=== PATIENT | male | born 1955 | race African-American/Black ===

== ENCOUNTER 2022-12-06 05:51 | Observation (INO) ==
--- NOTE | 2022-11-21 13:58 | PAT Medication Instructions ---
Medication Instructions Date of Service November 21, 2022 Home Medications Medication Instructions Recorded oxycodone-acetaminophen 10 mg-325 1 tab PO BID PRN pain #60 tabs 11/01/ mg tablet multivitamin 1 tab PO DAILY oxycodone-acetaminophen 10 mg-325 mg tablet 1 tab PO BID PRN DO NOT take the morning of surgery multivitamin 1 tab PO DAILY Take morning of surgery With a small sip of water, OTHERWISE NOTHING TO EAT OR DRINK AFTER MIDNIGHT: oxycodone-acetaminophen 10 mg-325 mg tablet 1 tab PO BID PRN(if needed) Take evening before surgery oxycodone-acetaminophen 10 mg-325 mg tablet 1 tab PO BID PRN(if needed) Other Notes If you have any questions please call us at [phone] or [phone] or [phone] or [phone]
--- NOTE | 2022-11-24 08:21 | Anesthesiology Consultation ---
Date of Service November 24, 2022 Assessment & Plan (1) Encounter for pre-operative examination: - Infectious disease screening: Per assessment on 11/24/22: No known infectious disease contacts or current infectious disease symptoms. No noted Covid positive test result in past 90 days. 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 Has had no issues since. Good functional status. Reviewed with Dr. Helm- recommends preop cardiology evaluation or at least preop Echo (if not able to be seen by cardiology preoperatively). [facility] [place] [facility] [place] that they cannot get patient in until after DOS. Per workload response from PCP, Echo order placed. Echo performed 11/25/22 was unremarkable-- showed the interatrial septum is intact with no evidence for ASD. Injection of contrast documented no interatrial shunt. Chart Review Chart Review: Acceptable Risk for Surgery and Patient seen in Pre Admission Testing Teaching & Discussion Pre-Anesthesia Teaching/Discussion Notes: Instructed NPO after midnight before surgery,except medications with 15 cc of water. Medication instructions provided according to the PAT guidelines. History Surgery Operation Date: 12/06/22 11:35 Proposed Procedures p C5-C6 Anterior Cervical Discectomy, Spinal Cord Monitoring - John Petersen MD Height/Weight Height: 5 ft 8 in Weight: 86.1 kg Allergies Allergy/AdvReac Type Severity Reaction Status Date / Time No Known Allergies Allergy Verified 11/17/22 13:03 Medications Home Medications Medication Instructions Recorded Confirmed Last Taken multivitamin 1 tab PO DAILY 10/06/22 11/17/22 Unknown oxycodone-acetaminophen 10 mg-325 1 tab PO BID PRN pain #60 tabs 11/01/22 11/17/22 Unknown mg tablet Past Medical History Medical History Arthritis Chronic low back pain with right-sided sciatica Congenital heart disease Stress test at age 48 revealed "hole in heart"- per patient, advised nothing further needed. Echo 10/2022, unremarkable with interatrial septum intact with no evidence for ASD. Injection of contrast documented no interatrial shunt. Left cervical radiculopathy Exercise / Class Metabolic Activity II 4-5 Yardwork/Stairs/Walk up hill Past Family History Family History Other No family history of adverse response to anesthesia Past Surgical History Surgical History History of anesthesia reaction slow to wake up and difficulty voiding/constipation History of colonoscopy History of left knee replacement History of tooth extraction [place] teeth removed Past Anesthesia History No Family Hx of Anesthesia Complications and Other (slow to wake up and difficulty voiding/constipation) History of PONV No Hx of PONV Social History Smoking Status: Former smoker Do You Dip or Chew Tobacco: No Smoking End Date: Quit 15-20 years ago Hx Alcohol Use: Yes Alcohol type: hard liquor alcohol intake frequency: a few times a week Hx Substance Use: Yes substance use type: marijuana Substance Use Type Other:: advised 3 day or longer hold Last Used Substance: Days (ago) Last Used Substance Other:: 3 days ago/gave instructions to avoid Review of Systems Patient denies chest pain, shortness of breath, dyspnea on exertion, fever, chills, cough, wheezing, palpitations. Physical Exam Vital Signs VITALS BP 135/84 P 61 TEMP 98.0 SP02 98%RA RESP 16 PHYSICAL Mildly decreased cervical extension range of motion. Full TMJ range of motion. TMD 4 finger breaths Mallampati Score 2 Dentition: full upper/lower dentures Lungs: clear throughout to auscultation Cardiac: regular rate and rhythm, no murmurs noted Spine: normal Carotid arteries: negative bruit Extremities: no LE edema Trimmed montoya Lab Results Anesthesia Preop Results Results Anesthesia Widget: WBC 4.90 K/ul (4.8-10.8) 11/24/22 Hgb 13.8 g/dl (14.0-18.0) L 11/24/22 Hct 40.7 % (42.0-52.0) L 11/24/22 Plt 225 K/uL (130-400) 11/24/22 PT 10.7 Seconds (9.0-12.0) 11/24/22 PTT 25.6 Seconds (21.0-31.0) 11/24/22 INR 1.0 (0.9-1.1) 11/24/22 HA1c 4.3 % (4.5-5.6) L 11/24/22 Urine Color Yellow 11/24/22 Urine Appearance Clear (Clear) 11/24/22 Urine pH 6.0 (4.5-7.5) 11/24/22 Urine Specific Boyce 1.018 (1.000-1.030) 11/24/22 Urine Protein Negative (Negative) 11/24/22 Urine Glucose (UA) Negative (Negative) 11/24/22 Urine Ketones Negative (Negative) 11/24/22 Urine Blood Negative (Negative) 11/24/22 Urine Nitrite Negative (Negative) 11/24/22 Urine Bilirubin Negative (Negative) 11/24/22 Urine Urobilinogen Negative (Negative) 11/24/22 Urine Leukocyte Esterase Negative (Negative) 11/24/22 Blood Type O Positive 11/24/22 Antibody Screen NEGATIVE 11/24/22 Testing Laboratory Results T3 (11/24/22): 121 (WNL) Electrocardiogram Date: 11/24/22 SB with first degree AVB at 55bpm. "Otherwise normal ECG" Chest X-Ray Date: 11/24/22 Findings: + NAD Echocardiogram Date: 11/25/22 EF 55-60%. LV wall motion is normal. Moderate cLVH. Grade I DD. Mild TR. The interatrial septum is intact with no evidence for ASD. Injection of contrast documented no interatrial shunt.
[2022-12-06] MEDS ORDERED: ceFAZolin 2000MG 2,000 MG/15 ML SYR IV SCH (06:00)
[2022-12-06] MEDS ORDERED: LR 15ML/HR IV SCH (06:00)
[2022-12-06] MEDS ORDERED: LR 60ML/HR IV SCH (06:00)
[2022-12-06] MEDS ORDERED: MIDAZOLAM HCL 1 MG/ML 2ML VIAL ONE (06:35)
[2022-12-06] MEDS ORDERED: fentaNYL citrate PF 100 MCG/2 ML VIAL ONE ×2 (06:35→08:20)
[2022-12-06] MEDS ORDERED: ROCURONIUM BROMIDE 10 MG/ML 5 ML VIAL IV ONE (06:35)
[2022-12-06] MEDS ORDERED: PROPOFOL IV EMULSION 10 MG/ML 20 ML VIAL IV ONE (06:35)
[2022-12-06] MEDS ORDERED: LIDOCAINE 2% 2 ML VIAL/AMP(20MG/ML) INFIL ONE (06:35)
[2022-12-06] MEDS ORDERED: DEXAMETHASONE SOD INJ 4 MG/ML VIAL ONE (06:35)
[2022-12-06] MEDS ORDERED: ONDANSETRON INJ 2 MG/ML 2 ML VIAL ONE (06:35)
[2022-12-06] MEDS ORDERED: SUGAMMADEX SODIUM 200 MG/2 ML VIAL IV ONE (06:36)
[2022-12-06] MEDS ORDERED: KETAMINE 50 MG/5 ML SYRINGE ONE (06:36)
[2022-12-06] MEDS ORDERED: PROPOFOL IV EMULSION 10 MG/ML 100 ML VIAL IV ONE (06:50)
[2022-12-06] MEDS ORDERED: HYDROmorphone INJ 2 MG/ML SYR/VIAL IV PRN (06:56)
[2022-12-06] MEDS ORDERED: ATROPINE SULFATE 0.1 MG/ML 10ML SYR IV PRN (06:56)
[2022-12-06] MEDS ORDERED: ePHEDrine sulfate 50 MG/ML AMP IV PRN (06:56)
[2022-12-06] MEDS ORDERED: ONDANSETRON INJ 2 MG/ML 2 ML VIAL IV PRN ×2 (06:56→11:58)
--- NOTE | 2022-12-06 06:59 | History & Physical Bridge Note ---
Date of Service December 06, 2022 History & Physical Bridge Note I have examined the patient, reviewed the History & Physical and in the interval since the performance of the History & Physical I have noted the following changes of clinical significance: no changes noted
[2022-12-06] MEDS ORDERED: GELATIN SPONGE 12-7MM ONE (07:04)
[2022-12-06] MEDS ORDERED: THROMBIN 5000 UNITS KIT ONE (07:04)
[2022-12-06] MEDS ORDERED: VANCOMYCIN HCL 1000MG/20ML VIAL ONE (07:04)
[2022-12-06] MEDS ORDERED: ceFAZolin 330 MG/ML 1 GM VIAL ONE (08:26)
[2022-12-06] MEDS ORDERED: FLOSEAL HEMOSTATIC MATRIX 10ML TOP ONE (11:40)
--- NOTE | 2022-12-06 11:56 | Post Operative Brief Note ---
PG Immediate Post Op with CF Date of Surgery December 06, 2022 Pre & Post Diagnosis Operation Date: 12/06/22 07:15 Pre-Op Diagnosis: 1. Degenerative Cervical Spinal Stenosis, 2. Left Cervical Radiculopathy Post-Op Diagnosis: 1. Degenerative Cervical Spinal Stenosis, 2. Left Cervical Radiculopathy I identified the patient and participated in the time-out.: Yes Procedure Operation Date: 12/06/22 07:15 Actual Procedures p C5-C6, C6-C7 Anterior Cervical Discectomy, Artifical Disc Replacement, Spinal Cord Monitoring(Not Applicable) - John Petersen MD Surgeon John Petersen MD Principal Embedded Software Engineer none Estimated Blood Loss 50 Findings Consistent with Post-Op Diagnosis Specimens Specimen Description: No specimen per surgeon Drains Burden Catheter
[2022-12-06] MEDS ORDERED: ACETAMINOPHEN 1,000 MG/100 ML VIAL IV PRN (11:58)
[2022-12-06] MEDS ORDERED: MAGNESIUM HYDROXIDE SUSP 30 ML UDC PO PRN (11:58)
[2022-12-06] MEDS ORDERED: FAMOTIDINE 20 MG TAB PO PRN (11:58)
[2022-12-06] MEDS ORDERED: HYDROmorphone INJ 0.5 MG/0.5 ML SYR IV PRN (11:58)
[2022-12-06] MEDS ORDERED: diphenhydrAMINE Capsule 25 MG CAP PO PRN (11:58)
[2022-12-06] MEDS ORDERED: hydrOXYzine HCl 25 MG TAB PO PRN (11:58)
[2022-12-06] MEDS ORDERED: dexAMETHasone 8 MG in SYRINGE 0 ML IV PRN (11:58)
[2022-12-06] MEDS ORDERED: ALUMINUM/MAGNESIUM SUSP 30 ML UDC PO PRN (11:58)
[2022-12-06] MEDS ORDERED: LORazepam 0.5 MG TAB PO PRN (11:58)
[2022-12-06] MEDS ORDERED: DO NOT ADMINISTER PNEUMOCOCCAL VACCINE PRN (11:58)
[2022-12-06] MEDS ORDERED: NALOXONE HCL 0.4 MG/1 ML VIAL/CARP IV PRN (11:58)
[2022-12-06] MEDS ORDERED: METOCLOPRAMIDE HCL INJ 5 MG/ML 2 ML VIAL IV PRN (11:58)
[2022-12-06] MEDS ORDERED: SOD PHOSPHATE/SOD BIPHOSPHATE ENEMA 132 ML BTL PR PRN (11:58)
[2022-12-06] MEDS ORDERED: DO NOT ADMINISTER FLU VACCINE PRN (11:58)
[2022-12-06] MEDS ORDERED: ACETAMINOPHEN 500 MG TAB PO PRN (11:58)
[2022-12-06] MEDS ORDERED: PROMETHAZINE HCL 12.5 MG in SODIUM CHLORIDE 0.9% 50 ML IV PRN (11:58)
[2022-12-06] MEDS ORDERED: bisacodyL 10 MG SUPP PR PRN (11:58)
[2022-12-06] MEDS ORDERED: LORazepam 2 MG/1 ML VIAL IV PRN (11:58)
[2022-12-06] MEDS ORDERED: ONDANSETRON 4 MG OD TAB PO PRN (11:58)
[2022-12-06] MEDS ORDERED: RACEPINEPHRINE 2.25% NEBU SOLN 0.5 ML VIAL INH PRN (11:58)
[2022-12-06] MEDS: fentaNYL citrate PF 100 MCG/2 ML VIAL IV PRN ×3 (12:10→13:09)
--- NOTE | 2022-12-06 12:32 | Fluoroscopy Report ---
FL cervical 2-3V CLINICAL HISTORY: C5-C6 ACDF COMPARISON STUDY: Cervical spine MRI August 02, 2022. Cervical spine radiographs August 16, 2022. Cervica l spine CT November 22, 2022. FLUOROSCOPY TIME: 2 minutes and 25 seconds. EXPOSURE DOSE: 69.34 mGy FLUOROSCOPIC IMAGES: 9 FINDINGS: Fluoroscopy was provided during C5-C6 and C6-C7 anterior discectomies with artificial disc replacements. The hardware is intact. Endotracheal tube is partially imaged. IMPRESSION: Fluoroscopy provided during C5-C6 and C6-C7 anterior discectomies. ACT 112: Negative or not required by law. Electronically signed by: Miguel Verdugo M.D. 12/06/2022 12:31 PM
--- NOTE | 2022-12-06 13:21 | Anesthesiology Progress Note ---
Date of Service December 06, 2022 Anesthesia Post Procedure Vital Signs Vital Signs: Temp Pulse Pulse Resp BP Pulse Ox O2 Del Method 12/06/22 13:15 59 L 13 169/96 H 96 Room Air 12/06/22 13:05 57 L 12 169/101 H 96 Room Air 12/06/22 12:55 36.2 C L 58 L 12 177/96 H 97 Room Air 12/06/22 12:45 57 L 14 161/98 H 97 Room Air 12/06/22 12:35 57 L 12 151/94 H 98 Room Air 12/06/22 12:25 60 12 159/98 H 96 Room Air 12/06/22 12:15 61 15 170/97 H 97 Room Air 12/06/22 12:05 62 17 165/100 H 100 Oxymask 12/06/22 11:55 36.2 C L 63 15 164/97 H 100 Oxymask 12/06/22 06:06 36.7 C 74 20 146/98 H 96 Room Air Pain Intensity Neck: Pain Intensity: 4 Transfer of Care Handoff Completed per policy Notes Mental Status: alert / awake / arousable and participated in evaluation Patient Amnestic to Procedure: Yes Nausea / Vomiting: adequately controlled Pain: adequately controlled Airway Patency, RR, SpO2: stable & adequate BP & HR: stable & adequate Hydration State: stable & adequate Anesthetic Complications: no major complications apparent and Pt Satisfied with anesthetic care
[2022-12-06] MEDS: LACTATED RINGER'S 1,000 ML IV SCH (14:12)
[2022-12-06] MEDS: oxyCODONE/ACETAMINOPHEN 5mg/325mg TAB PO PRN ×2 (14:15→20:33)
--- NOTE | 2022-12-06 14:45 | Hospitalist Consultation ---
Date of Consultation December 06, 2022 Assessment & Plan (1) Cervical spondylosis with radiculopathy: s/p C5-C6, C6-C7 Anterior Cervical Discectomy, Artifical Disc Replacement, Spinal Cord Monitoring(Not Applicable) - John Petersen MD EBL 50cc drinking without issue post-op, no stridor/difficulty swallowing, no SOB, 98% on ROOM air Pain control/bowel regimen/management per primary service Monitor labs in AM Patient anticipating dc tomorrow (2) Chronic low back pain: pain control, stable baseline pain/hx sciatica follows w/ chiropractor outpatient strength equal b/l LE, slightly shorter R leg since per patient messaged PCP about ref to orthotics outpt for insert (3) Sacroiliitis: hx of such, no acute exacerbation at present (4) Elevated PSA: hx elevated,no issues w/ stream reported and voiding since surgery PSA decreased on repeat -- he reports taking natural supp/herbs to help bring this down No family hx PSA/unexplained weight loss Consider ref to Urology in f/u with PCP for monitoring/bx if wanting given c hronic back pain however no s/sx malignancy at present Plan Thank you for allowing hospitalist service participate in care of Mr Cortes. Hospitalist service will chart check in AM but likely able to sign off as doing great post-op at present. Please call with any questions or concerns. Supervising Physician Co-Signing Physician Notes I personally saw and examined the patient. I verified all shukla points and agree with Kira Jones PA-C with the following exceptions and/or additions: 67 year old male POD #0 C5-C6, C6-7 Anterior Cervical Discectomy, Artificial Disc Replacement. EBL 50ml.Patient doing well post operatively. Reports improvement with his left hand weakness already post operatively. No new worsening symptoms. No acute medical needs identified. Pain/VTE/bowel management per ortho spine. History of Present Illness Reason for Consultation: med management Requesting Physician: Dr Petersen Attending Physician: John Petersen MD History of Present Illness 67yo male with PMHx significant for chronic back pain, elevated PSA (prostate noted normal on CTAP ) presented for ACDF C5-C6, C6-C7 with Dr Petersen this morning. EBL 50cc. Patient evaluated in 318, post-op. Doing well. Pain controlled, just got 2 percocet. Drinking water, pain not as bad with swallowing as he was imaging. UE symptoms improved. Has been voiding since surgery, discussed elevated PSA. NO family hx prostate ca or issues with stream. He reports taking natural supplements/herbs to bring this level down. No CP/SOB at this time, no difficulty swallowing. No abdominal pain, nausea or other symptoms to report. Apparently told in younger years had "hole in heart". ECHO prior to surgery performed w/o evidence for PFO/intraatrial shunt. Does have hx sciatica on the right. He notes from home /leg being slightly worse. Has been going to chiropractor with relief but thinks he may benefit from insert to his shoes. WIll message PCP. No currently tobacco use reported but does drink on weekend. Last drink on Monday, never had issues w/ withdrawal in the past. No tremors on exam. Anticipating discharge tomorrow. Questions/concerns addressed at this time. Allergies Allergy/AdvReac Type Severity Reaction Status Date / Time No Known Allergies Allergy Verified 12/06/22 06:09 Home Medications Medication Instructions Recorded Confirmed Type multivitamin 1 tab PO DAILY 10/06/22 12/06/22 History oxycodone-acetaminophen 10 mg-325 1 tab PO BID PRN pain #60 tabs 11/30/22 12/06/22 Rx mg tablet oxycodone-acetaminophen 5 mg-325 1 tab PO Q6H PRN pain #14 tabs 12/07/22 Rx mg tablet (Percocet) Patient History Medical History Arthritis Chronic low back pain with right-sided sciatica Congenital heart disease Stress test at age 48 revealed "hole in heart"- per patient, advised nothing further needed. Echo 10/2022, unremarkable with interatrial septum intact with no evidence for ASD. Injection of contrast documented no interatrial shunt. Left cervical radiculopathy Surgical History History of anesthesia reaction slow to wake up and difficulty voiding/constipation History of colonoscopy History of left knee replacement History of tooth extraction [place] teeth removed Family History Other No family history of adverse response to anesthesia Social History Smoking Status: Former smoker Tobacco Type: Cigarettes Smoking End Date: Quit 15-20 years ago; Second Hand Exposure: No; Do You Dip or Chew Tobacco: No; Tobacco Cessation Education Requested by Patient: No Hx Alcohol Use: Yes Alcohol type: hard liquor Hx Substance Use: Yes Non-Prescribed Medications: Marijuana Last Used Substance: Days (ago) Last Used Substance Other:: 3 days ago/gave instructions to avoid Substance Use Type Other:: advised 3 day or longer hold Preferred Language: Upper Sorbian Communication Ability: Effective Hearing Ability: Normal Machine Operator General Required: No Beliefs That Will Affect Care: None marital status: Current Living Situation: Spouse current occupational status: retired Other Information That Helps Us Care for You: No Feels Safe at Home: Yes Safety Concerns: Feels Safe At This Time Diet: regular caffeine: Yes Dental Care, Regularly: No Physical Activity Frequency: 3-4 Times per Week Seatbelt Use: always Sunscreen Use: No Assistive Devices: Glasses Review of Systems Review of Systems: All systems reviewed & are unremarkable except as noted in HPI & below Physical Exam Physical Exam: General: wd/wn male getting back into bed, just up to bathroom to urinate HEENT: head normocephalic, dressing to anterior neck c/d/i, no drain, no stridor Resp: CTA, no w/c/r, 98% RA CV: RRR,no significant m/r/g, no pitting edema/calf tenderess GI: +BS, soft/NT ; no lr MSK/Neuro: NVI, strength equal b/l UE right leg SLIGHTLY shorter than left, NVI, strength intact Psych: AOx3, pleasant and cooperative with exam Results & Data Results & Data Vital Signs (Past 12 Hours) Vital Signs Temp Pulse Pulse Resp BP Pulse Ox O2 Del Method 12/06/22 14:12 36.4 C L 61 14 175/98 H 98 Room Air 12/06/22 13:45 36.3 C L 63 18 165/78 H 97 Room Air 12/06/22 13:25 58 L 16 160/94 H 97 Room Air 12/06/22 13:15 59 L 13 169/96 H 96 Room Air 12/06/22 13:05 57 L 12 169/101 H 96 Room Air 12/06/22 12:55 36.2 C L 58 L 12 177/96 H 97 Room Air 12/06/22 12:45 57 L 14 161/98 H 97 Room Air 12/06/22 12:35 57 L 12 151/94 H 98 Room Air 12/06/22 12:25 60 12 159/98 H 96 Room Air 12/06/22 12:15 61 15 170/97 H 97 Room Air 12/06/22 12:05 62 17 165/100 H 100 Oxymask 12/06/22 11:55 36.2 C L 63 15 164/97 H 100 Oxymask 12/06/22 06:06 36.7 C 74 20 146/98 H 96 Room Air Diagnostic Findings Cervical Spine X-Ray 12/06/22 00:00 FL cervical 2-3V CLINICAL HISTORY: C5-C6 ACDF COMPARISON STUDY: Cervical spine MRI August 02, 2022. Cervical spine radiographs August 16, 2022. Cervical spine CT November 22, 2022. FLUOROSCOPY TIME: 2 minutes and 25 seconds. EXPOSURE DOSE: 69.34 mGy FLUOROSCOPIC IMAGES: 9 FINDINGS: Fluoroscopy was provided during C5-C6 and C6-C7 anterior discectomies with artificial disc replacements. The hardware is intact. Endotracheal tube is partially imaged. IMPRESSION: Fluoroscopy provided during C5-C6 and C6-C7 anterior discectomies. ACT 112: Negative or not required by law. Electronically signed by: Miguel Verdugo M.D. 12/06/2022 12:31 PM PG Care Time/CCT Total # of Minutes Spent Total Time Spent with Patient: Total time spent is greater than 50% in coordination of care (as documented) at patient's floor/unit and/or counseling patient: Coding Level of Care Code 02021 IN/OBS CONSULT LVL 3,45M Diagnoses Cervical spondylosis with radiculopathy M47.22 Chronic low back pain M54.50; G89.29 Sacroiliitis M46.1 Elevated PSA R97.20
[2022-12-06] MEDS: CYCLOBENZAPRINE HCL 10 MG TAB PO SCH ×2 (14:57→22:36)
[2022-12-06] MEDS: ceFAZolin 2000MG 2,000 MG/15 ML SYR IV SCH (18:10)
[2022-12-06] MEDS ORDERED: DOCUSATE SODIUM/SENNA 50/8.6MG TAB PO SCH (21:00)
[2022-12-07] MEDS ORDERED: Nursing to Pharmacy Communication SCH (02:00)
[2022-12-07] MEDS: ceFAZolin 2000MG 2,000 MG/15 ML SYR IV SCH (02:15)
[2022-12-07] MEDS: LACTATED RINGER'S 1,000 ML IV SCH (02:34)
[2022-12-07] MEDS: oxyCODONE/ACETAMINOPHEN 5mg/325mg TAB PO PRN ×2 (03:12→07:37)
[2022-12-07] MEDS ORDERED: POLYETHYLENE (MIRALAX) 17 GM PACK PO SCH (06:00)
[2022-12-07] MEDS: CYCLOBENZAPRINE HCL 10 MG TAB PO SCH (06:02)
[2022-12-07 07:10] LABS: Basophils # (auto) 0.02 K/uL (0.00-0.20); Basophils % (auto) 0.2 %; Hematocrit (blood only) 38.5 % (42.0-52.0); Hemoglobin 13.4 g/dl (14.0-18.0); Immature Granulocytes # (auto) 0.07 K/uL (0.01-0.20); Immature Granulocytes % (auto) 0.7 %; Lymphocytes # (auto) 1.46 K/uL (1.20-3.40); Lymphocytes % (auto) 14.7 %; Mean Corpuscular Hemoglobin 30.5 pg (25.0-34.0); Mean Corpuscular Hgb Conc 34.8 g/dL (32.0-36.0); Mean Corpuscular Volume 87.7 fL (80.0-100.0); Mean Platelet Volume 9.2 fL (9.4-12.4); Monocytes # (auto) 0.79 K/uL (0.11-0.59); Neutrophils # (auto) 7.58 K/uL (1.40-6.50); Neutrophils % (auto) 76.4 %; Platelet Count 219 K/uL (130-400); RDW Coefficient of Variation 11.4 % (11.5-14.5); RDW Standard Deviation 36.7 fL (36.4-46.3); Red Blood Count 4.39 M/uL (4.70-6.10); White Blood Count 9.92 K/ul (4.8-10.8)
[2022-12-07 07:25] LABS: BUN Creatinine Ratio 10.2 (10-20); Calcium 9.1 mg/dl (8.6-10.3); Creatinine Clr Calc Pharmacy 74.5 ml/min; Est GFR (African American) 90.8 ml/min; Est GFR (Non-African American) 78.4 ml/min; Potassium 4.1 mmol/L (3.5-5.1)
--- NOTE | 2022-12-07 09:03 | Orthopedic Progress Note ---
Date of Service December 07, 2022 Subjective . Patient postoperative day 1 status post anterior decompression and artificial disc replacement at C5-6 and C6-7. The patient notes that he has minimal axial symptoms, no swallowing issues. He notes a distinct improvement in his left hand as he can mobilize his index and thumb in an improved fashion compared to the preoperative symptoms. Dressing with minimal if any drainage present. Impression/plan: Postop day 1 status post surgery as stated with improvement of neural compressive symptoms left arm. Patient is able to be discharged later today with follow-up in 2 weeks, instructions given. Review of Systems All systems reviewed & are unremarkable except as noted in HPI & below. Physical Exam . Results & Data Results & Data Laboratory Results . Diagnostic Findings . PG Care Time/CCT Total # of Minutes Spent Total Time Spent with Patient: Total time spent is greater than 50% in coordination of care (as documented) at patient's floor/unit and/or counseling patient: Coding Level of Care Code 83139 Post Operative Follow-Up Diagnoses
--- NOTE | 2022-12-08 17:02 | Operative Report ---
PG Post Operative Report Pre & Post Diagnosis Operation Date: 12/06/22 07:15 Pre-Op Diagnosis: 1. Degenerative Cervical Spinal Stenosis, 2. Left Cervical Radiculopathy Post-Op Diagnosis: 1. Degenerative Cervical Spinal Stenosis, 2. Left Cervical Radiculopathy I identified the patient and participated in the time-out.: Yes Procedure Operation Date: 12/06/22 07:15 Actual Procedures p C5-C6, C6-C7 Anterior Cervical Discectomy, Artifical Disc Replacement, Spinal Cord Monitoring(Not Applicable) - John Petersen MD Surgeon John Petersen MD Warehouse Packaging Supervisor none Estimated Blood Loss 50 Findings Consistent with Post-Op Diagnosis Specimens none Description of Procedure 1. C5-6 anterior cervical decompression, artificial disc replacement, Mobi-C 17 x 19 x 5 mm [id number] 2. C6-7 anterior cervical decompression, artificial disc replacement, Mobi-C 17 x 19 x 5 mm [id number] Patient was taken the operating room and after adequate anesthesia was carefully positioned supine on the OSI flat top table. Positioning was then performed with placing the head in slight extension, and then a preprep was performed followed by then securing the patient in standard fashion for the approach as mentioned, I brought in the C arm and marked for the approximate location for the incision. Prepping and draping was performed, and I began the procedure with a left-sided approach to the C5-6 and C6-7 levels. Dissection was carried out down to the anterior aspect the cervical spine in standard fashion along the medial border of the sternocleidomastoid. Once reaching the anterior aspect of the cervical spine, I confirmed our levels using C arm radiography followed by then placement of distractor pins at C6 and C7 first. The operative microscope was brought in after retractors were placed, I began the procedure with a anterior annulotomy at the C6-7 level. Curettes and pituitaries and Kerrison punches were then utilized to remove the disc material with a thorough discectomy out laterally to the uncinates, removal of cartilage from the endplates. The posterior osteophyte was exposed followed by then utilization of a high-speed bur to thin and remove the overhanging osteophyte from C5-6 posteriorly. I then mobilized the remaining disc annulus and posterior longitudinal ligament with decompression down to the dura across the interspace and with removal of disc material posteriorly herniated behind the C7 vertebral body. With the decompression completed I then went through trials selecting the size artificial disc as noted. This was then tapped into position with excellent positioning, confirmed on AP and lateral radiographs. The distractor pin was then removed from C7, Floseal and bone wax was applied. The pin was then inserted at C5 for distraction to the C5-6 level in a similar fashion, retractors were then replaced, and procedure was then carried out in a similar fashion with an anterior annulotomy followed by thorough discectomy and and decompression posteriorly in the interspace. A similar sized artificial disc replacement was then inserted without issue, and excellent placement on AP and lateral views. Final images were then obtained after the pins were removed followed by Floseal and bone wax, inspection of the area did not reveal any bleeding. Vancomycin powder was placed followed by then closure using interrupted 3-0 Vicryl sutures followed by benzoin and Steri-Strips and a sterile dressing. Patient tolerated procedure well was taken recovery room centric condition. I attest to the content of the Intraoperative Record and any orders documented therein. Any exceptions are noted below.
--- NOTE | 2022-12-08 17:04 | Discharge Summary ---
Date of Service December 08, 2022 Principal Diagnosis Same as "Discharge Diagnosis" noted below under Discharge Instructions. Discharge Exam . Discharge Data Consultations 12/06/22 12:04 Consult Hospitalist Routine Procedures Performed Operation Date: 12/06/22 07:15 Actual Procedures p C5-C6, C6-C7 Anterior Cervical Discectomy, Artifical Disc Replacement, Spinal Cord Monitoring(Not Applicable) - John Petersen MD Ordered Studies 12/06/22 FL cervical 2-3V Routine Hospital Course (1) Cervical spondylosis with radiculopathy: (2) Degenerative cervical spinal stenosis: (3) Weakness of left arm: Plan Anterior cervical decompression C5-6 and C6-7 with placement of artificial disc replacements. PG Care Time/CCT Total # of Minutes Spent Total Time Spent with Patient: Total time spent is greater than 50% in coordination of care (as documented) at patient's floor/unit and/or counseling patient: Discharge Plan Discharge Items Patient Disposition: Home - Self-Care Reason For Visit: Weakness of Left Arm, Numbness and Tingling of Lef Discharge Diagnosis: Cervical stenosis with radiculopathy. Activity: Per Instructions section Lifting: No more than 10 pounds Bathing: May shower/bathe in 3 days Driving/Machine Use: After follow-up visit. Weightbearing: Full weightbearing Non-emergency contact: Surgeon Call non-emergency contact if: your symptoms worsen Follow-up/Referrals: Dwight Mcgee DO [Primary Care Provider] - 12/14/22 2:00 pm (APPOINTMENT WITH JULISSA COATES) Diet: Regular Addtl Attending Provider Instructions: Remove dressing in 2 days and may take shower, maintain Steri-Strips until follow-up in 2 weeks. No contact sports for 6 weeks. Pending Studies at Discharge: No Stand-Alone Forms: [employer], Smoking Cessation Medications and DC Order Prescriptions: New oxycodone-acetaminophen [Percocet] 5-325 mg Tablet 1 tab PO Q6H PRN (Reason: pain) Qty: 14 0RF Continued oxycodone-acetaminophen 10-325 mg tablet 1 tab PO BID PRN (Reason: pain) Qty: 60 0RF multivitamin Tablet 1 tab PO DAILY Discharge Orders: Discharge Order (Routine); Ordered 12/07/22 Ordered By: John Petersen Admission Data Admit Date/Time: 12/06/22 11:58 Attending Provider: John Petersen Admit Provider: John Petersen Primary Care Provider: Dwight Mcgee Other Providers: Liam Lozano Other Interventions: Discharge Summary Assessment (RN) Last Done: 12/07/22 09:21
== END 2022-12-07 11:08 | disposition home or self-care (01) ==
LOC: 3E 05:51 → ASU 05:51

== ENCOUNTER 2024-11-05 05:26 | Observation (INO) ==
--- NOTE | 2024-10-18 11:40 | PAT Medication Instructions ---
Medication Instructions Date of Service October 18, 2024 Home Medications Medication Instructions Recorded oxycodone-acetaminophen 10 mg-325 1 tab PO TID PRN pain 30 days #90 09/24/25 mg tablet tabs multivitamin 1 tab PO DAILY oxycodone-acetaminophen 10 mg-325 mg tablet 1 tab PO TID PRN pain DO NOT take the morning of surgery multivitamin 1 tab PO DAILY Take morning of surgery With a small sip of water, OTHERWISE NOTHING TO EAT OR DRINK AFTER MIDNIGHT: oxycodone-acetaminophen 10 mg-325 mg tablet 1 tab PO TID PRN pain (if needed) Take evening before surgery oxycodone-acetaminophen 10 mg-325 mg tablet 1 tab PO TID PRN pain (if needed) Other Notes If you have any questions please call us at [phone] or [phone] or [phone] or [phone]
--- NOTE | 2024-10-24 10:16 | Anesthesiology Consultation ---
Date of Service October 24, 2024 Assessment & Plan (1) Encounter for pre-operative examination: - Infectious disease screening: Per assessment on 10/24/24- No known recent infectious disease contacts or current infectious disease symptoms. - Outpatient joint assessment: Pt currently scheduled for inpatient pathway. If surgeon requests review for outpatient joint pathway, patient is an acceptable candidate for outpatient joint program from anesthesia standpoint pending surgeon's office assessment that patient is motivated, has good support and completes [facility] preop requirements. Chart Review Chart Review: Acceptable Risk for Surgery and Patient seen in Pre Admission Testing Teaching & Discussion Pre-Anesthesia Teaching/Discussion Notes: Instructed NPO after midnight before surgery,except medications with 15 cc of water. Medication instructions provided according to the PAT guidelines. History Surgery Operation Date: 11/05/24 08:50 Proposed Procedures p Right Total Knee Arthroplasty - Terry Browne MD Height/Weight Height: 5 ft 7 in Weight: 81 kg Allergies Allergy/AdvReac Type Severity Reaction Status Date / Time No Known Allergies Allergy Verified 10/17/24 14:40 Medications Home Medications Medication Instructions Recorded Confirmed Last Taken multivitamin 1 tab PO DAILY 10/06/22 10/17/24 02/02/24 oxycodone-acetaminophen 10 mg-325 1 tab PO TID PRN pain 30 days #90 10/25/24 Unknown mg tablet tabs Past Medical History Medical History Arthritis BPH (benign prostatic hyperplasia) Chronic low back pain Congenital heart disease Stress test at age 48 revealed "hole in heart"- per patient, advised nothing further needed. Subsequent Echo 10/2022, unremarkable with interatrial septum intact with no evidence for ASD. Injection of contrast documented no interatrial shunt. Dry cough Chronic, unremarkable EGD 01/2024, unknown etiology Hx of gastroesophageal reflux (GERD) No recent issues Lumbar radiculopathy Sacroiliitis Spinal stenosis Past Family History Family History Mother Breast cancer Other No family history of adverse response to anesthesia Past Surgical History Surgical History H/O left cataract extraction H/O right cataract extraction History of anesthesia reaction Difficulty voiding/constipation History of colonoscopy History of esophagogastroduodenoscopy (EGD) History of left knee replacement History of tooth extraction S/P cervical spinal fusion (12/06/22) C5-C7 ACDF with artificial disc replacement: Grade 2 view, Glidescope#4, ETT 7.5, [facility] S/P epidural steroid injection lumbar [place] teeth removed Past Anesthesia History No Family Hx of Anesthesia Complications and Other (Difficulty voiding/constipation (Left TKA)) History of PONV No Hx of PONV and No Hx of Motion Sickness Social History Smoking Status: Former smoker Do You Dip or Chew Tobacco: No Smoking End Date: Quit ~2004 Hx Alcohol Use: Yes Alcohol type: hard liquor alcohol intake frequency: a few times a month Hx Substance Use: Yes substance use type: marijuana (Intermittent/occasional use, weekends > Advised) Review of Systems Intermittent, cough dry cough baseline. Patient denies chest pain, shortness of breath, dyspnea on exertion, fever, chills, wheezing. Physical Exam Vital Signs BP 123/78 P 63 TEMP 97.7 SP02 98%RA RESP 18 Physical Full cervical extension range of motion. Full TMJ range of motion. TMD > 3.5 finger breaths Mallampati Score II Dentition: full upper/lower dentures Lungs: clear throughout to auscultation Cardiac: regular rate and rhythm, no murmurs noted Spine: normal Carotid arteries: negative bruit Extremities: no LE edema Lab Results Anesthesia Preop Results Results Anesthesia Widget: WBC 5.47 K/ul (4.8-10.8) 10/24/24 Hgb 13.1 g/dl (14.0-18.0) L 10/24/24 Hct 39.9 % (42.0-52.0) L 10/24/24 Plt 223 K/uL (130-400) 10/24/24 Na 138 mmol/L (136-145) 10/24/24 K 4.3 mmol/L (3.5-5.1) 10/24/24 Cl 105 mmol/L (98-107) 10/24/24 CO2 28 mmol/L (21-32) 10/24/24 BUN 8 mg/dl (6-23) 10/24/24 Creat 0.96 mg/dl (0.6-1.4) 10/24/24 Glucose Level 109 mg/dl (70-99(Fasting)) H 10/24/24 PT 10.4 Seconds (9.0-12.0) 10/24/24 PTT 25 Seconds (21-31) 10/24/24 INR 1.0 (0.9-1.1) 10/24/24 Blood Type O Positive 10/24/24 Antibody Screen NEGATIVE 10/24/24 Testing Electrocardiogram Date: 10/24/24 SB with first degree AVB. 58bpm. Cannot r/o anterior infarct, age undetermined. NS TWA. Per program/music director comparison: Compared to 11/24/2022 ECG, Questionable QRS axis change and NS TWA (worsened in lateral leads). Chest X-Ray Date: 10/24/24 Findings: The lungs are clear. The cardiomediastinal silhouette is within normal limits. No pleural effusion or pneumothorax. The heart size appears normal. No bony or soft tissue abnormality. Impression: Normal chest x-ray Echocardiogram Date: 11/25/22 EF 55-60%. LV wall motion is normal. Grade I DD. Moderate cLVH. No RWMA. The in teratrial septum is intact with no evidence for atrial septal defect. Injection of contrast documented no interatrial shunt.
[2024-11-05] MEDS: ACETAMINOPHEN 500 MG TAB PO SCH ×2 (05:59→13:51)
[2024-11-05] MEDS: METOCLOPRAMIDE HCL 10 MG TABLET PO SCH (06:00)
[2024-11-05] MEDS: LR 500ML BOLUS, THEN 15ML/HR IV SCH (06:00)
[2024-11-05] MEDS: dexAMETHasone**PF** 10 MG/ML VIAL IV SCH (06:00)
[2024-11-05] MEDS: CeleBREX 200 MG CAP PO SCH (06:00)
[2024-11-05] MEDS: FAMOTIDINE 20 MG TAB PO SCH (06:00)
[2024-11-05] MEDS: LR 60ML/HR IV SCH (06:00)
[2024-11-05] MEDS ORDERED: EPINEPHrine INJ 1 MG/ML AMP ONE (06:22)
[2024-11-05] MEDS ORDERED: BUPIVACAINE 0.5 % 5 MG/1 ML PF 10ML VIAL ONE (06:23)
[2024-11-05] MEDS ORDERED: DEXAMETHASONE SOD INJ 4 MG/ML VIAL ONE (06:23)
[2024-11-05] MEDS ORDERED: BUPIVACAINE 0.25% PF 30 ML VIAL ONE (06:23)
[2024-11-05] MEDS ORDERED: GLYCOPYRROLATE 0.2 MG/ML VIAL ONE (06:40)
[2024-11-05] MEDS ORDERED: MIDAZOLAM HCL 1 MG/ML 2ML VIAL ONE (06:40)
[2024-11-05] MEDS ORDERED: PROPOFOL IV EMULSION 10 MG/ML 20 ML VIAL IV ONE (06:40)
--- NOTE | 2024-11-05 06:48 | History & Physical Bridge Note ---
Date of Service November 05, 2024 History & Physical Bridge Note I have examined the patient, reviewed the History & Physical and in the interval since the performance of the History & Physical I have noted the following changes of clinical significance: no changes noted
[2024-11-05] MEDS ORDERED: PROMETHAZINE HCL 6.25 MG in SODIUM CHLORIDE 0.9% 50 ML IV PRN (07:16)
[2024-11-05] MEDS ORDERED: ONDANSETRON INJ 2 MG/ML 2 ML VIAL IV PRN ×2 (07:16→10:32)
[2024-11-05] MEDS ORDERED: KETAMINE HCL 10MG/ML SYR ONE (07:16)
[2024-11-05] MEDS ORDERED: ATROPINE SULFATE 0.1 MG/ML 10ML SYR IV PRN (07:16)
[2024-11-05] MEDS ORDERED: LIDOCAINE 2% 2 ML VIAL/AMP(20MG/ML) INFIL ONE (07:16)
[2024-11-05] MEDS ORDERED: ONDANSETRON INJ 2 MG/ML 2 ML VIAL ONE (07:17)
[2024-11-05] MEDS ORDERED: ePHEDrine sulfate 50 MG/5 ML SYR ONE (07:25)
[2024-11-05] MEDS: ROPIV 0.5% 246mg, Ketorolac 30mg, EPINEPHrine 0.5mg in NSS INFIL SCH (07:44)
[2024-11-05] MEDS: ORTHO JOINT ANESTHETIC ONE (07:44)
--- NOTE | 2024-11-05 09:16 | Operative Report ---
PG Post Operative Report Pre & Post Diagnosis Operation Date: 11/05/24 07:00 Pre-Op Diagnosis: Right Knee Osteoarthritis Post-Op Diagnosis: Right Knee Osteoarthritis I identified the patient and participated in the time-out.: Yes Procedure Operation Date: 11/05/24 07:00 Actual Procedures p Right Total Knee Arthroplasty(Right) - Terry Browne MD Surgeon Terry Browne MD [employer] Rafael Pedroza PA-C Estimated Blood Loss 50 Findings Consistent with Post-Op Diagnosis Specimens Right knee sent for pathology. Anesthesia Type Spinal MAC Complications none Disposition Accompanied Patient To Recovery: No Indications Patient is a 69-year-old gentleman has had a long history of knee problems. He had a left knee replacement done about 3 years ago in [place]. Over the years she developed increased pain discomfort and deformity in his right knee. Failed conservative measures. X-rays show advanced right knee arthritis. He elected proceed with surgical treatment. Description of Procedure Operative implants consist of: 1 Biomet Vanguard size 70 right posterior stabilized femoral component. 2. Biomet size 79 tibial tray. 3. 10 mm posterior stabilized polyethylene insert. 4. 34 x 8.5 all poly patella. The patient was taken to the operating, identified, placed on the operating table in the supine position. All contact areas were appropriately padded. IV antibiotics were provided by the anesthesia team. A spinal anesthetic and adductor canal block had been provided in the holding area. Right thigh turn was then placed. The right lower extremity was then prepped and draped in usual sterile fashion. The right leg was elevated and exsanguinated with use of an Esmarch and a tourniquet was placed at 300 mmHg. An anterior approach of the right knee was then performed through a longitudinal incision centered over the patella. Sharp dissection was carried through subcutaneous tissue down to the extensor mechanism. A medial parapatellar arthrotomy incision was made. Some subperiosteal dissection was carried out medially. The fat pad was dissected from his patella tendon. Lateral patellofemoral ligament was released. Patella subluxated laterally and the knee was flexed. The osteophytes were taken off distal femur. The ACL and PCL were then released from distal femur and the tibia subluxated anteriorly. The external tibial alignment jig was then placed on the interface the tibia and adjusted 14 mm medially. The proximal tibial cut was made essentially flush with the most deficient aspect of the medial tibial plateau. Some osteophytes were taken off medial and posterior medially. The tibia was then sized to a size 79. Attention drawn the femur. The distal femur examined the sharp drill. Intramedullary canal was suction. A right 6 degree valgus cutting guide was placed. The distal femoral cutting block was pinned in place. Distal femoral cut was made to take an additional 3 mm of bone off distal femur. The femur was then sized to a size 70. The AP cutting block was pinned parallel to the epicondylar axis which was 3 degrees of external rotation. The anterior cut, anterior chamfer, posterior cut, posterior chamfer cuts were made. The box cutting guide was placed. The box cut was made. The knee was flexed. The remnants of the medial and lateral menisci were excised. The osteophytes were taken off the posterior aspect the femur. A trial femoral component was placed. The tibial tray was pinned in Bella external rotation and the drill and stem punch were used to create defect in the proximal tibia for the tibial tray. Knee was then trialed and the a 10 mm insert fit most appropriately. Attention drawn the patella. The patella was cleaned of all soft tissue. Patella thickness measured 25 mm in thickness was cut down to 15. Was sized to a size 34 patella. The lug holes were drilled for 34 patella. The lateral osteophytes removed. Patella button was placed. Knee was taken through range of motion patella tracked nicely with no thumbs test. Attention jointer placed in the permanent components. All trial components were removed. A bone plug was placed in the distal femur limit blood loss. A double batch [place] G cement was mixed. A Biomet Vanguard size 70 right posterior stabilized femoral component, size 79 tibial tray, a 10 mm posterior stabilized polyethylene insert, and a 34 x 8-1/2 all poly patella then cemented in place. Knee was brought out in full extension till cement hardened. Final cement check was then performed. The pericapsular tissues were injected with total 100 cc of Ortho mix. Patient did receive 1 g tranexamic acid. The tourniquet was then let down for final tourniquet time 68 minutes. Hemostasis assured with electrocautery. The extensor mechanism then closed with a combination 1 PDS suture #1 Vicryl suture in a [id number] fashion. Extensor [place] checked found to be intact. Subcutaneous tissue then closed with 2 Dexon suture in a buried interrupted fashion skin was closed skin gina. Leg was then cleaned and dried and a sterile dressing with Xeroform, 4 fours, sterile cast padding, Stoney bandage were applied. The patient then tra nsferred to the recovery room in stable condition. Patient tolerated procedure well and there were no complications. Rafael Pedroza, my physician social media assistant, was present for the entire procedure. His assistance was required for proper patient positioning, prepping and draping, surgical exposure, retraction, perform the technical details of the operation, placement of the implants, closure of the incision site, and placement of postoperative sterile bandage. I attest to the content of the Intraoperative Record and any orders documented therein. Any exceptions are noted below.
--- NOTE | 2024-11-05 09:37 | XRay Report ---
XR knee RT 1 or 2V routine CLINICAL HISTORY: Surgical Post Op COMPARISON: None FINDINGS: Right knee prosthesis shows no hardware complication. There is expected soft tissue gas. S kin gina are present. IMPRESSION: Unremarkable postoperative exam. ACT 112: Negative or not required by law. Electronically signed by: Suresh Beasley M.D. 11/05/2024 9:35 AM
--- NOTE | 2024-11-05 10:24 | Anesthesiology Progress Note ---
Date of Service November 05, 2024 Anesthesia Post Procedure Vital Signs Vital Signs: Temp Pulse Pulse Resp BP Pulse Ox O2 Del Method 11/05/24 10:05 62 14 123/71 95 Room Air 11/05/24 09:55 61 16 127/81 92 Room Air 11/05/24 09:45 36.4 C L 60 18 116/71 92 Room Air 11/05/24 09:35 57 L 17 122/69 98 Room Air 11/05/24 09:25 56 L 12 125/67 99 Oxymask 11/05/24 09:15 61 14 117/68 100 Oxymask 11/05/24 09:05 36.2 C L 66 16 118/71 98 Oxymask 11/05/24 05:46 36.8 C 60 20 153/96 H 98 Room Air O2 Flow Rate 11/05/24 10:05 11/05/24 09:55 11/05/24 09:45 11/05/24 09:35 11/05/24 09:25 6 11/05/24 09:15 6 11/05/24 09:05 8 11/05/24 05:46 Transfer of Care Handoff Completed per policy Notes Mental Status: alert / awake / arousable Patient Amnestic to Procedure: Yes Nausea / Vomiting: adequately controlled Pain: adequately controlled Airway Patency, RR, SpO2: stable & adequate BP & HR: stable & adequate Hydration State: stable & adequate Neuraxial Anesthesia: was administered and sensory block is resolving Anesthetic Complications: no major complications apparent and Pt Satisfied with anesthetic care
[2024-11-05] MEDS ORDERED: METOCLOPRAMIDE HCL INJ 5 MG/ML 2 ML VIAL IV PRN (10:32)
[2024-11-05] MEDS ORDERED: NALOXONE HCL 0.4 MG/1 ML VIAL/CARP IV PRN (10:32)
[2024-11-05] MEDS ORDERED: MAGNESIUM HYDROXIDE SUSP 30 ML UDC PO PRN (10:32)
[2024-11-05] MEDS ORDERED: ALUMINUM/MAGNESIUM SUSP 30 ML UDC PO PRN (10:32)
[2024-11-05] MEDS ORDERED: HYDROmorphone INJ 0.5 MG/0.5 ML SYR IV PRN (10:32)
[2024-11-05] MEDS: KETOROLAC TROMETHAMINE 15 MG/ML VIAL IV SCH (11:46)
[2024-11-05] MEDS: SODIUM CHLORIDE 0.9% 1,000 ML IV SCH (11:46)
[2024-11-05] MEDS: TRANEXAMIC ACID / 0.7% NACL 1,000 MG/100 ML BAG IV SCH (16:08)
[2024-11-05] MEDS ORDERED: SENNA 8.6 MG TAB PO SCH (21:00)
[2024-11-05] MEDS: ASPIRIN 81 MG ECTAB PO SCH (21:25)
[2024-11-05] MEDS: SENNA 8.6 MG TAB PO SCH (21:26)
[2024-11-05] MEDS: DOCUSATE SODIUM 100 MG CAP PO SCH (21:26)
[2024-11-06 06:28] LABS: Hematocrit (blood only) 32.8 % (42.0-52.0); Hemoglobin 10.8 g/dl (14.0-18.0); Mean Corpuscular Hemoglobin 28.9 pg (25.0-34.0); Mean Corpuscular Volume 87.7 fL (80.0-100.0); Platelet Count 219 K/uL (130-400); RDW Standard Deviation 36.4 fL (36.4-46.3); Red Blood Count 3.74 M/uL (4.70-6.10); White Blood Count 12.65 K/ul (4.8-10.8)
[2024-11-06 06:49] LABS: Anion Gap 5.0 (3-11); Blood Urea Nitrogen 14.0 mg/dl (6-23); Calcium 8.9 mg/dl (8.6-10.3); Carbon Dioxide 26.0 mmol/L (21-32); Chloride 105.0 mmol/L (98-107); Creatinine Clr Calc Pharmacy 73.1 ml/min; Glucose 125.0 mg/dl (70-99(Fasting)); Potassium 4.6 mmol/L (3.5-5.1); Sodium 136.0 mmol/L (136-145)
[2024-11-06] MEDS: MULTIVITAMIN TAB PO SCH (08:05)
[2024-11-06] MEDS: TAMSULOSIN HCL 0.4 MG CAP PO SCH (08:05)
[2024-11-06] MEDS: dexAMETHasone 10 MG in SYRINGE 0 ML IV SCH (08:06)
[2024-11-06] MEDS ORDERED: NON-FORMULARY MEDICATION (Multivitamin Tablet) PO SCH (09:00)
--- NOTE | 2024-11-06 09:31 | Orthopedic Progress Note ---
Date of Service November 06, 2024 Assessment & Plan (1) Status post total right knee replacement: * Continue Current Treatment * Disposition: Home * Daily treatment: Physical Therapy/ Occupational Therapy per protocol * Weight bearing status: WBAT * Continue to monitor for ABLA * Pain control * DVT prophylaxis, ASA * Office/hospital f/u 2 weeks for progress check and staple/suture removal * Plan for discharge today pending PT/OT clearance Subjective .Active Problems: S/p right TKA POD 1 69 y/o male s/p right TKA. Doing well overall, pain managed and improved function. Denies fever/chills, chest pain/SOB, nausea/vomiting. Otherwise no complaints. Review of Systems All systems reviewed & are unremarkable except as noted in HPI & below. Physical Exam . * General: Alert and oriented, no acute distress * Constitutional: well-developed, well-nourished. * Respiratory: Normal respiratory effort, no distress * Gastrointestinal: No tenderness to palpation, no rigidity or guarding. * Skin: No rash or lesion. * Neurologic: Grossly normal * Musculoskeletal: Right knee surgical dressing CDI, not removed for exam. Otherwise no obvious deformity or overlying skin changes RLE. Diffuse TTP distal thigh and knee region. Otherwise no specific tenderness of proximal thigh, lower leg, foot/ankle. AROM knee flexion 100 degrees. AROM foot/ankle intact. Sensation intact plantar/dorsal foot. Brisk capillary refill. Results & Data Results & Data Laboratory Results . Diagnostic Findings . Knee X-Ray 11/05/24 09:12 XR knee RT 1 or 2V routine CLINICAL HISTORY: Surgical Post Op COMPARISON: None FINDINGS: Right knee prosthesis shows no hardware complication. There is expected soft tissue gas. Skin gina are present. IMPRESSION: Unremarkable postoperative exam. ACT 112: Negative or not required by law. Electronically signed by: Suresh Beasley M.D. 11/05/2024 9:35 AM PG Care Time/CCT Total # of Minutes Spent Total Time Spent with Patient: Total time spent is greater than 50% in coordination of care (as documented) at patient's floor/unit and/or counseling patient: Coding Level of Care Code 67757 Post Operative Follow-Up Diagnoses Status post total right knee replacement Z96.651
[2024-11-06 10:59] VITALS: BP 135/89; PULSE 72; RESP 16; TEMP 98.4; O2SAT 98
== END 2024-11-06 11:25 | disposition home health service (06) ==
LOC: ASU 05:26 → 3E 05:26